=== PATIENT | male | born 1970 | race Caucasian/White ===

== ENCOUNTER → 2021-10-28 09:25 | Outpatient (BNVA) | payer OTHER, SELFPAY | PROVIDERS: Family Provider Family Medicine; PCP Family Medicine; Visit Provider Urology | DX: R97.20 Elevated prostate specific antigen [PSA] (principal) | CPT/HCPCS: 81003; 84153 ==

== ENCOUNTER 2022-02-20 14:08 | Outpatient (CLI) | payer OTHER, SELFPAY | END 2022-02-20 14:09 | disposition home or self-care (01) | LOC: LAB 14:10 | PROVIDERS: Family Provider Family Medicine; PCP Family Medicine; Visit Provider Urology | DX: R97.20 Elevated prostate specific antigen [PSA] (principal) | CPT/HCPCS: 36415; 81003; 84153; 99212 ==

== ENCOUNTER 2022-06-29 13:43 | Outpatient (CLI) | payer OTHER, SELFPAY | END 2022-06-29 13:44 | disposition home or self-care (01) | LOC: RAD 13:46 | PROVIDERS: PCP Family Medicine; Visit Provider Urology | DX: R97.20 Elevated prostate specific antigen [PSA] (principal); R79.89 Other specified abnormal findings of blood chemistry | CPT/HCPCS: 36415; 84153; 99212 ==

== ENCOUNTER 2022-12-28 12:27 | Outpatient (CLI) | payer OTHER, SELFPAY ==
[2022-12-28 14:22] LABS: Prostate Specific AG Urology 4.56 ng/mL (0-4)
== END 2022-12-28 12:28 | disposition home or self-care (01) ==
PROVIDERS: PCP Family Medicine; Visit Provider Urology
DX: R97.20 Elevated prostate specific antigen [PSA] (principal)
CPT/HCPCS: 36415; 84153

== ENCOUNTER 2023-01-04 08:58 | Outpatient (CLI) | payer OTHER, SELFPAY ==
[2023-01-04 11:27] LABS: Testosterone Total - Urology 154 ng/mL (300-1000)
== END 2023-01-04 08:59 | disposition home or self-care (01) ==
LOC: LAB 09:02
PROVIDERS: PCP Family Medicine; Visit Provider Urology
DX: R79.89 Other specified abnormal findings of blood chemistry (principal); R97.20 Elevated prostate specific antigen [PSA]
CPT/HCPCS: 36415; 84403; 99213

== ENCOUNTER 2024-05-23 17:18 | Emergency (ER) | payer OTHER, SELFPAY ==
[2024-05-23 17:34] VITALS: BP 135/82; PULSE 98; RESP 18; TEMP 37; O2SAT 95; BMI 30.5
[2024-05-23 18:50] LABS: Basophils % 0.5 %; Hematocrit 41.9 % (37-53); Lymphocytes # 1.6 10^3/uL (0.8-4.8); Lymphocytes % 39.9 %; Mean Corpuscular HGB Conc 34.1 g/dL (30-55); Mean Corpuscular Hemoglobin 30.9 pg (27-33); Mean Corpuscular Volume 90.5 fl (82-101); Mean Platelet Volume 9.7 fL (7.4-10.4); Monocytes # 0.5 10^3/uL (0.2-0.9); Monocytes % 12.4 %; Neutrophils # 1.81 10^3/uL (1.8-7.7); Neutrophils % 45.7 %; Nucleated Red Blood Cells % 0 %; Platelet Count 204 10^3/cmm (157-399); Red Blood Count 4.63 10^6/uL (3.85-5.65); Red Cell Distribution Width 12.9 % (12.1-15.1); White Blood Count 3.96 10^3/uL (3.29-11.43)
[2024-05-23 19:04] LABS: D Dimer 0.84 ug/mLFEU (0-0.59)
[2024-05-23 19:07] LABS: Alanine Aminotransferase 77 U/L (0-41); Albumin Level 4.4 g/dL (3.5-5.2); Alkaline Phosphatase 122 U/L (40-130); Anion Gap 15.9 (5-19); Aspartate Amino Transferase 40 U/L (0-40); Blood Urea Nitrogen 15 mg/dL (6-20); Calcium 9.1 mg/dL (8.5-10.5); Carbon Dioxide 25 mmol/L (22-29); Chloride 101 mmol/L (98-107); Globulin 2.7 g/dL (1.3-4.6); Glomerular Filtration Rate 88.3 mL/min (90-130); Glucose 111 mg/dL (65-115); Osmolality Calculated 288 mOsm/kg (285-295); Potassium 3.9 mmol/L (3.5-5.1); Sodium 138 mmol/L (136-145); Total Bilirubin 0.4 mg/dL (0.15-1.2); Total Protein 7.1 g/dL (6.6-8.7)
--- NOTE | 2024-05-23 19:17 | CTR_ITS ---
PROCEDURE INFORMATION: Exam: CTA Chest With Contrast Exam date and time: 05/23/2024 7:47 PM Age: 53 years old Clinical indication: Abnormal findings; Abnormal diagnostic tests; Elevated d-dimer; Shortness of breath; Patient HX: C/O SOB with exertion. D dimer of 0.84; Additional info: Elevated d dimer dyspnea TECHNIQUE: Imaging protocol: Computed tomographic angiography of the chest with contrast. Exam focused on the arteries. 3D rendering (Not supervised by radiologist): MIP and/or 3D reconstructed images were created by the technologist. Radiation optimization: All CT scans at this facility use at least one of these dose optimization techniques: automated exposure control; mA and/or kV adjustment per patient size (includes targeted exams where dose is matched to clinical indication); or iterative reconstruction. Contrast material: OMNI 350; Contrast volume: 143 ml; Contrast route: INTRAVENOUS (IV); COMPARISON: No relevant prior studies available. RADIATION DOSE METRICS: Total DLP (mGy-cm): 805.89 FINDINGS: Pulmonary arteries: No definite pulmonary embolism. Apparent filling defect in a left lower lobe segmental artery is likely artifactual (series 16, image 211). No corresponding suspicious filling defect in other views. Aorta: Unremarkable. No aortic aneurysm. No aortic dissection. Lungs: Multiple calcified granulomas bilaterally. Dependent atelectasis in bilateral lower lobes. 6 mm subpleural right lower lobe nodule. No focal consolidation. Pleural spaces: Unremarkable. No pneumothorax. No pleural effusion. Heart: Unremarkable. No cardiomegaly. No pericardial effusion. Lymph nodes: Calcified mediastinal/hilar lymph nodes. Liver: Mild hepatic steatosis. Spleen: The spleen is enlarged, measuring 18 cm AP. Calcified splenic granulomas. Bones/joints: Unremarkable. No acute fracture. Soft tissues: Unremarkable. CT/CT angio chest PE protcl [id number] IMPRESSION: 1. No evidence of pulmonary embolism. 2. No acute findings in the chest. 3. Prior granulomatous disease. 4. Splenomegaly. 5. 6 mm right lower lobe pulmonary nodule. For patients at low risk (minimal or absent history of smoking and of other known risk factors), recommend CT Chest at 6-12 months, then consider CT Chest at 18-24 months. For patients at high risk (history of smoking or of other known risk factors), recommend CT Chest at 6-12 months, then CT Chest at 18-24 months. (Reference: Tricia) REFERENCES: Tricia Carney, et al. Guidelines for Management of Incidental Pulmonary Nodules Detected on CT Images: From the Fleischner Society 2017. Radiology. 2017;284(1):228-243.
[2024-05-23 19:23] LABS: Slide Review Slide Review Perform
--- NOTE | 2024-05-23 19:30 | ED_ITS ---
HPI - Recheck/Abnormal Lab/Rx 2 General: Chief Complaint: Recheck/Abnormal Lab/Rx Stated Complaint: [facility]D Dimer blood panel was high Time Seen by Provider: 05/23/24 18:20 History of Present Illness: Patient presents to the ER followed up from [place] lab of D-dimer being positive. Patient states that over about the last 3 months he has had shortness of breath dizziness wheezing overall body ache and has is having brain fog. This was constant for about 2 months that he thought he was getting better for a couple weeks and then during the last couple weeks he started to get worse. He went to the [place] clinic they did a bunch of lab work that he does not know exactly what other than the D-dimer that was positive. They told him to come over here and be checked out for blood clot. Related Data Home Medications Medication Instructions Recorded Confirmed atorvastatin 10 mg tablet 10 mg PO .1/2 TABLET DAILY 02/20/22 01/04/23 cholecalciferol (vitamin D3) 10 10 mcg PO DAILY 01/04/23 01/04/23 mcg (400 unit) capsule Allergies Allergy/AdvReac Type Severity Reaction Status Date / Time No Known Allergies Allergy Verified 05/23/24 17:39 Review of Systems 2 General: Reports: 10 or more systems reviewed and unremarkable except in HPI and below PFSH ED 2 PFSH: Medical History Elevated PSA Family History Father Hypertension Diabetes Congestive heart failure (CHF) Mother , AT AGE 73 Cancer OVARIAN Social History Smoking and tobacco/nicotine status: never used tobacco/nicotine Alcohol intake: current Alcohol intake frequency: holidays/special occasions only Substance/Drug Use: never Marital status: Current occupational status: employed Physical Exam 2 Const: COMMON NORMALS: no acute distress, average body habitus, patient oriented x3, no limitations, healthy appearing, alert and well nourished HENMT: COMMON NORMALS: normocephalic, atraumatic, hearing grossly normal bilaterally, external ears normal, Normal external nose present and moist oral mucous membranes HEAD & SCALP: normocephalic and atraumatic NOSE: Normal external nose present EXTERNAL EAR: Yes external ears normal Neck/C-Spine: COMMON NORMALS: full ROM, no lymphadenopathy, supple, no meningeal signs, no JVD and Thyroid normal THYROID: Thyroid normal Chest: COMMONS NORMALS: normal inspection of the chest and normal palpation of entire chest wall Resp: COMMON NORMALS: normal respiratory effort, No retractions, No use of accessory muscles and clear to auscultation bilaterally AUSCULTATION: clear to auscultation bilaterally Cardio: COMMON NORMALS: no JVD, regular rate, regular rhythm, S1 normal heart sound present, S2 normal heart sound present, No gallops present (Cardio), No clicks present (Cardio), No murmurs present (Cardio) and No rub (Cardio) R ATE: regular rate RHYTHM: regular rhythm HEART SOUNDS: S1 normal heart sound present and S2 normal heart sound present GI: COMMON NORMALS: Normal to inspection, nondistended, normoactive bowel sounds present, Soft to palpation, non-tender, No hepatosplenomegaly present and no masses PALPATION: Yes Soft to palpation and Yes No hepatosplenomegaly present Neuro: COMMON NORMALS: patient oriented x3 SENSORIUM/ORIENTATION: Yes alert MENINGEAL SIGNS: Yes no meningeal signs Course 2 Vital Signs: Vital signs: Vital Signs Temperature 98.6 F 05/23/24 17:34 Pulse Rate 94 05/23/24 20:00 Respiratory Rate 18 05/23/24 17:34 Blood Pressure 134/85 05/23/24 20:00 Pulse Oximetry 97 05/23/24 20:00 Oxygen Delivery Me thod Room Air 05/23/24 19:32 MDM - Recheck/Abnormal Lab/Rx Medical Decision Making Patient had lab work to include CBC CMP D-dimer, D-dimer slightly elevated at 0.8, CMP was fairly benign except ALT slightly elevated at 77, CTA showed no pulmonary embolism, these results was discussed with the patient and his . Patient be discharged from the ER. Medical Records I reviewed the patient's medical records. Lab Data I reviewed the patient's lab results. 05/23/24 18:40 05/23/24 18:40 Radiology Impressions Chest CTA 05/23/24 19:17 IMPRESSION: 1. No evidence of pulmonary embolism. 2. No acute findings in the chest. 3. Prior granulomatous disease. 4. Splenomegaly. 5. 6 mm right lower lobe pulmonary nodule. For patients at low risk (minimal or absent history of smoking and of other known risk factors), recommend CT Chest at 6-12 months, then consider CT Chest at 18-24 months. For patients at high risk (history of smoking or of other known risk factors), recommend CT Chest at 6-12 months, then CT Chest at 18-24 months. (Reference: Tricia) REFERENCES: Tricia Carney, et al. Guidelines for Management of Incidental Pulmonary Nodules Detected on CT Images: From the Fleischner Society 2017. Radiology. 2017;284(1):228-243. Laboratory Results WBC 3.96 10^3/uL (3.29-11.43) 05/23/24 18:40 RBC 4.63 10^6/uL (3.85-5.65) 05/23/24 18:40 Hgb 14.30 g/dL (11.27-16.99) 05/23/24 18:40 Hct 41.9 % (37-53) 05/23/24 18:40 MCV 90.5 fl (82-101) 05/23/24 18:40 MCH 30.9 pg (27-33) 05/23/24 18:40 MCHC 34.1 g/dL (30-55) 05/23/24 18:40 RDW 12.9 % (12.1-15.1) 05/23/24 18:40 Plt Count 204 10^3/cmm (157-399) 05/23/24 18:40 MPV 9.7 fL (7.4-10.4) 05/23/24 18:40 Neut % (Auto) 45.7 % 05/23/24 18:40 Lymph % (Auto) 39.9 % 05/23/24 18:40 Dillon % (Auto) 12.4 % 05/23/24 18:40 Eos % (Auto) 0.0 % 05/23/24 18:40 Baso % (Auto) 0.5 % 05/23/24 18:40 Neut # (Auto) 1.81 10^3/uL (1.8-7.7) 05/23/24 18:40 Lymph # (Auto) 1.6 10^3/uL (0.8-4.8) 05/23/24 18:40 Dillon # (Auto) 0.5 10^3/uL (0.2-0.9) 05/23/24 18:40 Eos # (Auto) 0.0 10^3/uL (0.0-0.8) 05/23/24 18:40 Baso # (Auto) 0.0 10^3/uL (0.0-0.1) 05/23/24 18:40 Nucleated RBC % (auto) 0 % 05/23/24 18:40 Nucleated RBCs # 0.0 /100WBC 05/23/24 18:40 D-Dimer 0.84 ug/mLFEU (0-0.59) H 05/23/24 18:40 Sodium 138 mmol/L (136-145) 05/23/24 18:40 Potassium 3.9 mmol/L (3.5-5.1) 05/23/24 18:40 Chloride 101 mmol/L (98-107) 05/23/24 18:40 Carbon Dioxide 25 mmol/L (22-29) 05/23/24 18:40 Anion Gap 15.9 (5-19) 05/23/24 18:40 BUN 15 mg/dL (6-20) 05/23/24 18:40 Creatinine 0.9 mg/dL (0.7-1.2) 05/23/24 18:40 GFR Calculation 88.3 mL/min (90-130) L 05/23/24 18:40 Glucose 111 mg/dL (65-115) 05/23/24 18:40 Calculated Osmolality 288 mOsm/kg (285-295) 05/23/24 18:40 Calcium 9.1 mg/dL (8.5-10.5) 05/23/24 18:40 Total Bilirubin 0.4 mg/dL (0.15-1.2) 05/23/24 18:40 AST 40 U/L (0-40) 05/23/24 18:40 ALT 77 U/L (0-41) H 05/23/24 18:40 Alkaline Phosphatase 122 U/L (40-130) 05/23/24 18:40 Total Protein 7.1 g/dL (6.6-8.7) 05/23/24 18:40 Albumin 4.4 g/dL (3.5-5.2) 05/23/24 18:40 Globulin 2.7 g/dL (1.3-4.6) 05/23/24 18:40 All radiology interpretation(s) finalized by discharge Discharge Plan Discharge Patient Disposition: Home Clinical Impression: D-dimer, elevated Condition: Stable Prescriptions: No Action atorvastatin 10 mg tablet 10 mg PO .1/2 TABLET DAILY cholecalciferol (vitamin D3) 10 mcg (400 unit) capsule 10 mcg PO DAILY Discharge Orders: Discharge ED (Routine); Ordered 05/23/24 Ordered By: Clem Christensen Referrals: Malena Longoria MD [Primary Care Provider] - 1 week Activity Restrictions/Additional Instructions: We rechecked your lab, looks it was benign, your D-dimer was still slightly elevated from our normal as well as 1 liver enzyme was slightly elevated. Your CT angiogram of your chest did not show a blood clot. Please follow-up with your [place] doctor further evaluation testing. Thank you for choosing [facility] for your healthcare needs today. Please realize that you were seen in the emergency department and that we are providing you with an emergency medical screening exam and this may not be a complete and all exclusive of all testing and/or medical workup we may need to determine your element or severity of your illness. It is very important that you follow-up as instructed with your primary care provider or specialist for the additional evaluation and to discuss your medical treatment plan. You may return to the emergency department should you have concerns or if your condition changes or worsens in any way. Coding Level of Care Code ED [employer]
[2024-05-23 19:32] VITALS: BP 142/88; PULSE 88; O2SAT 96
[2024-05-23 20:00] VITALS: BP 134/85; PULSE 94; O2SAT 97
[2024-05-23] MEDS: iohexol 350 mg/mL 500 mL Btl (per mL) IV (20:02)
[2024-05-23 22:01] VITALS: BP 127/69; PULSE 92; O2SAT 96
== END 2024-05-23 21:45 | disposition home or self-care (01) ==
PROVIDERS: Emergency Provider Emergency Medicine; PCP Family Medicine
DX: R79.1 Abnormal coagulation profile (principal)
CPT/HCPCS: 36415; 71275; 80053; 85025; 85378; 99285

== ENCOUNTER 2024-06-24 07:01 | Outpatient (CLI) | payer OTHER, SELFPAY ==
--- NOTE | 2024-06-24 07:15 | US_ITS ---
WS: [id number] RIGHT UPPER QUADRANT ULTRASOUND HISTORY: ELEVATED LFT'S COMPARISON: None available. Liver: 17.7 cm in length. Top normal size liver and normal echogenicity. No bile duct dilatation or m ass. Portal Vein: Normal hepatopetal flow with monophasic waveform. Gallbladder: Normally distended gallbladder with no stones or wall thickening. CBD: 0.6 cm Pancreas: Not visualized. Right kidney: 12.3 cm in length. Normal size and echogenicity. No hydronephrosis or mass. Aorta and IVC: Unremarkable abdominal aorta and IVC. No ascites. US/US abdomen limited [id number] IMPRESSION: 1. Normal gallbladder. 2. Liver is top normal size. No bile duct dilatation.
== END 2024-06-24 07:02 | disposition home or self-care (01) ==
LOC: RAD 07:01
PROVIDERS: PCP Family Medicine; Visit Provider Family Medicine
DX: Z01.89 Encounter for other specified special examinations (principal)
CPT/HCPCS: 76705

== ENCOUNTER 2024-07-15 06:46 | Outpatient (CLI) | payer OTHER, SELFPAY | END 2024-07-15 06:47 | disposition home or self-care (01) | LOC: RT 06:47 | PROVIDERS: PCP Family Medicine; Visit Provider Chiropractor | DX: L92.9 Granulomatous disorder of the skin and subcutaneous tissue, unspecified (principal) | CPT/HCPCS: 94010 ==

== ENCOUNTER 2024-09-23 08:07 | Outpatient (CLI) | payer OTHER, SELFPAY | END 2024-09-23 08:08 | disposition home or self-care (01) | LOC: RT 08:08 | PROVIDERS: PCP Family Medicine; Visit Provider Chiropractor | DX: R06.02 Shortness of breath (principal) | CPT/HCPCS: 94010; 94729 ==

== ENCOUNTER 2025-01-21 08:31 | Outpatient (CLI) | payer OTHER, SELFPAY ==
--- NOTE | 2025-01-21 08:36 | CT_ITS ---
WS: [id number] CT chest w con* [id number] HISTORY: FOLLOW UP NODULE TECHNIQUE: Axial imaging performed through the thorax. Coronal and sagittal reformats are submitted. All CT scans at [facility] use at least one of these dose optimization techniques: automated exposure control; mA and/or kV adjustment per patient size (includes targeted exams where dose is matched to clinical indication); or iterative reconstruction. CONTRAST: Omnipaque 350; 100 mL IV. DLP: 559.43 mGy.cm COMPARISON: 05/23/2024 Lungs and central airway: Several small scattered calcified granulomata are identified. Previously described noncalcified nodule at the RIGHT lung base is significantly decreased in size now measuring only 4 mm. No new mass. Pleura: Normal. No pleural effusion. Heart and pericardium: Normal size heart with no pericardial effusion. Mediastinum and mellisa: No mediastinum or hilar adenopathy. Vessels: Normal size aortic and pulmonary artery. No coronary artery calcifications. Chest wall and lower neck: No soft tissue masses. Upper abdomen: Hepatic steatosis. Gallbladder is slightly contracted which is probably due to nonfasting state. LEFT adrenal mass measures 2.5 cm. Osseous structures: No destructive process. CT/CT chest w con* [id number] IMPRESSION: 1. Interval decrease in size of the RIGHT lower lobe noncalcified pulmonary no dule now measuring 4 mm. 2. Numerous calcified granulomata. 3. Contracted gallbladder. 4. LEFT adrenal mass, 2.5 cm. Recommend follow-up CT or MRI adrenal mass mahamed col with and without contrast.
[2025-01-21] MEDS: iohexol 350 mg/mL 500 mL Btl (per mL) IV (09:04)
== END 2025-01-21 08:32 | disposition home or self-care (01) ==
PROVIDERS: PCP Family Medicine; Visit Provider Family Medicine
DX: Z01.89 Encounter for other specified special examinations (principal); R91.1 Solitary pulmonary nodule; J84.10 Pulmonary fibrosis, unspecified; R93.3 Abnormal findings on diagnostic imaging of other parts of digestive tract; E27.8 Other specified disorders of adrenal gland; K76.0 Fatty (change of) liver, not elsewhere classified
CPT/HCPCS: 71260

== ENCOUNTER 2025-03-20 06:50 | Outpatient (CLI) | payer OTHER, SELFPAY ==
--- NOTE | 2025-03-20 06:54 | MRR_ITS ---
PROCEDURE INFORMATION: Exam: MR Abdomen Without and With Contrast Exam date and time: 03/20/2025 7:04 AM Age: 54 years old Clinical indication: Left adrenal mass on contrast-enhanced chest CT exam. TECHNIQUE: Imaging protocol: Magnetic resonance imaging of the abdomen without and with contrast. Contrast material: MULTIHANCE; Contrast volume: 20 ml; Contrast route: INTRAVENOUS (IV); COMPARISON: CT chest on 01/11/2025. No other relevant exams. FINDINGS: The 2.5 cm left adrenal mass shows significant loss of signal on opposed phase imaging, finding characteristic of adrenal adenomas. Right adrenal gland is unremarkable. A small cyst is present in left lobe of the liver. Diffuse hepatic steatosis is present, primarily sparing the caudate lobe and gallbladder fossa region. Please note that the liver is incompletely imaged on this exam. The spleen appears prominent in size but is also incompletely imaged. No gallbladder wall thickening or biliary duct dilation. No acute abnormality of pancreas or kidneys is seen. Abdominal aorta and major visceral arteries are unremarkable. SMV, splenic vein, and portal vein are patent. MR/MR adrenals wo/w con [id number] IMPRESSION: 1. Left adrenal adenoma is confirmed. 2. Hepatic steatosis. Chronic mild splenomegaly COMMENTS: 1. Consistent with the [employer]'s Incidental Findings Committee white paper (J Am Mary Radiol 2017): For any incidental adrenal lesion greater than or equal to 1 cm but less than or equal to 4 cm classified in this report as benign, likely benign, or containing fat (including classification as an adenoma or myelolipoma), no follow-up imaging is recommended per consensus recommendations based on imaging criteria. Further lab evaluation could be pursued if warranted based on clinical findings. 2. Consistent with the [employer]'s Incidental Findings Committee white paper (J Am Mary Radiol 2018): Any incidental renal lesion less than 1 cm or classified as too small to characterize, or any incidental cystic renal lesion characterized as simple-appearing, is likely benign. No follow-up imaging is recommended for these lesions per consensus recommendations based on imaging criteria.
[2025-03-20] MEDS: gadobenate dimeglumine 20 mL vial IV (07:22)
== END 2025-03-20 06:51 | disposition home or self-care (01) ==
LOC: RAD 06:51
PROVIDERS: PCP Family Medicine; Visit Provider Family Medicine
DX: E27.9 Disorder of adrenal gland, unspecified (principal); K76.0 Fatty (change of) liver, not elsewhere classified
CPT/HCPCS: 74183; A9577

== ENCOUNTER → 2025-08-20 13:28 | Outpatient (BNVA) | payer OTHER, SELFPAY | PROVIDERS: PCP Family Medicine; Visit Provider Podiatrist Foot & Ankle Surgery | DX: L60.0 Ingrowing nail (principal); G57.92 Unspecified mononeuropathy of left lower limb | CPT/HCPCS: 99203 ==